=== PATIENT | male | born 1980 | race Caucasian/White ===

== ENCOUNTER 2020-10-29 07:56 | Emergency (ER) | payer OTHER ==
[~2020-10-29] VITALS: Ht 185.4 cm; Wt 133.8 kg
[2020-10-29] MEDS ORDERED: NORVASC 2.5 MG2.5 M1 (08:03)
[2020-10-29] MEDS ORDERED: PROTONIX40 MG PO (08:43)
[2020-10-29] MEDS ORDERED: REGLAN 10 MG TA10 MG PO (08:43)
[2020-10-29 08:48] VITALS: BP 140/84
== END 2020-10-29 08:48 | disposition home or self-care (01) ==
LOC: M.ERS 07:56
DX: R10.13 Epigastric pain (principal); R11.0 Nausea; I10 Essential (primary) hypertension; E78.5 Hyperlipidemia, unspecified; E66.9 Obesity, unspecified; Z68.38 Body mass index [BMI] 38.0-38.9, adult